=== PATIENT | male | born 1995 ===

== ENCOUNTER 2019-03-24 12:27 | Outpatient (CLI) | payer OTHER | END 2019-03-24 12:43 | disposition home or self-care (01) | LOC: LAB 12:27 | DX: Z20.820 Contact with and (suspected) exposure to varicella (principal); Z11.3 Encounter for screening for infections with a predominantly sexual mode of transmission; Z02.79 Encounter for issue of other medical certificate; J06.9 Acute upper respiratory infection, unspecified ==